=== PATIENT | male | born 1975 | race Caucasian/White ===

== ENCOUNTER 2016-08-20 16:45 | Emergency (ER) | payer OTHER ==
[2016-08-20] MEDS ORDERED: HYDROmorphONE/DILAUDID 1 MG/ML SYR IVP ONE ×3 (16:53→18:58)
--- NOTE | 2016-08-20 16:57 | EDPHY ---
H & P Time Seen by Provider: 08/20/16 16:55 HPI/ROS: CHIEF COMPLAINT: Left leg injury HISTORY OF PRESENT ILLNESS: 41-year-old male presents to the emergency department by ambulance with isolated injury to the left leg. The patient was skiing at [place] and somehow twisted his left leg and fell. He complains of isolated pain to the left lower leg. Denies hitting his head or losing consciousness. He was skiing with a helmet on. He denies knee pain. He denies hip pain. Denies neck or back pain. Denies chest pain or difficulty breathing. Denies paresthesias in his upper or lower extremities. REVIEW OF SYSTEMS: Constitutional: No fever, no chills. Eyes: No double or blurry vision. ENT: No sore throat. Respiratory: No cough, no shortness of breath. Cardiac: No chest pain. Gastrointestinal: No abdominal pain, vomiting or diarrhea. Genitourinary: No dysuria. Musculoskeletal: No neck or back pain. Skin: No rashes. Neurological: No headache. Past Medical/Surgical History: Negative Social History: Primary care provider is with [facility] Physical Exam: General Appearance: Alert, no distress. No visible signs of trauma to his head. He is mentating normally and answering questions appropriately. Eyes: Pupils equal and round. Extraocular motions are all intact. ENT: Mouth: Mucous membranes moist. Respiratory: No wheezing, rhonchi, or rales, lungs are clear to auscultation. Cardiovascular: Regular rate and rhythm. Gastrointestinal: Abdomen is soft and nontender, no masses, no rebound or guarding, bowel sounds normal. Neurological: Alert and oriented x 3, cranial nerves II through XII grossly intact Skin: Warm and dry, no rashes. Musculoskeletal: Nontender to palpate along the cervical, thoracic or lumbar spine. Neck is supple. Extremities: Obvious swelling and deformity to the left lower leg just distal to the knee. It is tender to palpate. He has normal sensation to light touch with normal 2 point discrimination. Strong dorsalis pedis pulse on the dorsal aspect of the left foot. Limited range of motion of the left foot and ankle secondary to pain in his left leg. His left knee is nontender. His left hip is nontender. His gait is not tested due to pain. Psychiatric: Patient is oriented X 3, there is no agitation. Constitutional: Initial Vital Signs Temperature (C) 36.8 C 08/20/16 16:55 Heart Rate 108 H 08/20/16 16:55 Respiratory Rate 12 08/20/16 16:55 Blood Pressure 164/112 H 08/20/16 16:55 O2 Sat (%) 96 08/20/16 16:55 O2 Delivery Mode Room Air Allergies/Adverse Reactions: No Known Allergies Allergy (Unverified 08/20/16 16:53) Home Medications: Medication Instructions Recorded Imuran 50 mg (*) 08/20/16 Medical Decision Making - Diagnostics Imaging: Left tib-fib x-rays reveal comminuted spiral fracture of the mid to distal shaft of the right tibia with a distal transverse fracture of the fibula. This displaced. This is reviewed by myself the PAC system as well as by the radiologist. ED Course/Re-evaluation: 41-year-old male presents to the emergency department by ambulance with isolated injury to the left lower leg. X-rays reveal comminuted fracture of the left tibia and transverse fracture of the left fibula. The patient required 250 mcg of fentanyl IV and 10 mg of morphine IV in route to the hospital by EMS. The patient was given 2 mg of IV Dilaudid over 1 hour for pain. He was feeling better. Clinically I do not think this patient currently has compartment syndrome. I discussed the risks of compartment syndrome development with the patient. His leg was elevated and ice was applied. The tibia was externally rotated which was appropriately aligned when the splint was applied. He was placed in a long- leg Ortho Glass splint and Ortho Glass sugar-tong splint. I spoke with the [facility] physician for continuity of care and patient requested and have sent the pictures to the [facility] orthopedic physician speech language pathology assistant on-call at [phone]. This patient has been accepted at [facility] to Dr. Boyce, orthopedic surgeon. He will be transferred by ambulance to [facility]. Patient required additional IV Dilaudid for pain control. Throughout his entire stay in the emergency department, his leg was elevated and ice was applied to help minimize risk of compartment syndrome. Differential Diagnosis: Including but not limited to fracture, dislocation, contusion, sprain, compartment syndrome - Data Points Medications Given: Discontinued Medications Hydromorphone HCl (Dilaudid) 1 mg IVP EDNOW ONE Stop: 08/20/16 16:54 Last Admin: 02/07/17 17:05 Dose: 1 mg Hydromorphone HCl (Dilaudid) 1 mg IVP EDNOW ONE Stop: 08/20/16 17:48 Last Admin: 08/20/16 17:54 Dose: 1 mg Hydromorphone HCl (Dilaudid) 1 mg IVP ONCE ONE Stop: 08/20/16 18:59 Last Admin: 08/20/16 19:06 Dose: 1 mg Sodium Chloride (Ns) 1,000 mls @ 0 mls/hr IV ONCE ONE PRN Reason: Wide Open Stop: 08/20/16 17:07 Last Admin: 08/20/16 17:06 Dose: 1,000 mls Departure - Departure Disposition: Acute Care Hospital [facility] Clinical Impression: Fracture of left tibia and fibula Qualifiers: Encounter type: initial encounter Fracture type: closed Qualifier Code: ( S82.202A) Unspecified fracture of shaft of left tibia, initial encounter for closed fracture Condition: Fair Referrals: Patient,NotPresent [Unknown] - As per Instructions
[2016-08-20] MEDS ORDERED: NS 1,000 ML IV ONE (17:06)
--- NOTE | 2016-08-20 17:34 | DX ---
Left Tibia and Fibula - Two Views 1709 hours Indication: Skiing injury. Pain. Technique: AP and lateral views. Comparison: None. Findings: A severely comminuted diaphyseal fracture of the distal half of the tibia is externally ro tated 90 degrees and has minimal apex medial angulation. A dominant segmental fracture fragment, hailey suring 10 cm in length, is minimally displaced anteriorly. An acute distal fibular diaphyseal fracture has minimal apex posterior and medial angulation. Impression: 1. Acute comminuted, externally rotated, and angulated distal tibial diaphyseal fracture. 2. Acute minimally-angulated distal fibular diaphyseal fracture.
[2016-08-20 17:55] VITALS: RESP 16
[2016-08-20] MEDS ORDERED: PROPOFOL 200 MG/20 ML VIAL ONE (18:47)
[2016-08-20 19:29] VITALS: BP 127/81; PULSE 94; TEMP 98.4; O2SAT 98
--- NOTE | 2016-08-20 19:46 | DX ---
Left Tibia and Fibula, Two Views, at 1904 hours History: Comminuted spiral fracture post cast placement. Pain. Comparison: Same day earlier. Findings: Spiral comminuted fracture of the mid to distal diaphyseal shaft of the left tibia demonst rates improved alignment, with multiple comminuted fragments and minimal displacement. No significan t angulation. Oblique spiral comminuted fracture of the distal diaphyseal shaft of the left fibula a gain noted, with posterior displacement of the distal fragment approximately 7 mm and only 50% apposi tion on the lateral view. No widening of the ankle mortise. Impression: Comminuted spiral fractures of the mid to distal diaphyseal shafts of the left tibia and fibula, with improved alignment of the tibia post cast placement.
== END 2016-08-20 19:31 | disposition short-term general hospital (02) ==
DX: S82.252A Displaced comminuted fracture of shaft of left tibia, initial encounter for closed fracture (principal); S82.402A Unspecified fracture of shaft of left fibula, initial encounter for closed fracture; V00.321A Fall from snow-skis, initial encounter; Y92.89 Other specified places as the place of occurrence of the external cause; Y93.23 Activity, snow (alpine) (downhill) skiing, snowboarding, sledding, tobogganing and snow tubing
CPT/HCPCS: 96374; J1170; J2704